=== PATIENT | male | born 1960 | race Caucasian/White ===

== ENCOUNTER 2023-04-04 19:30 | Emergency (ER) | payer OTHER, SELFPAY ==
[2023-04-04 19:38] VITALS: BP 200/98; PULSE 80; RESP 18; TEMP 36.8; O2SAT 97; BMI 31.9
--- NOTE | 2023-04-04 20:54 | ED_ITS ---
HPI - Dizziness General: Chief Complaint: Dizziness Stated Complaint: bp high,dizzy Time Seen by Provider: 04/04/23 20:45 History of Present Illness: HPI Narrative: Patient presents to the ER with dizziness and high blood pressure. Patient is normally on losartan 50 mg that he has been taking blood pressure has been creeping up over the last week. Patient went to his PCP last week and got diagnosed with the flu and was put on antibiotics and his cough and congestion has gotten better but his blood pressure started going up he started get more dizzy. Patient denies ever feeling bad and before he got sick his blood pressure was controlled per the patient Review of Systems General: Reports: 10 or more systems reviewed and unremarkable except in HPI and below Physical Exam Const: COMMON NORMALS: no acute distress, average body habitus, patient oriented x3, no limitations, healthy appearing, alert and well nourished HENMT: COMMON NORMALS: normocephalic, atraumatic, hearing grossly normal bilaterally, external ears normal, EAC's normal, moist oral mucous membranes and oropharynx normal; TM's not normal bilaterally (Bilateral serous otitis) HEAD & SCALP: normocephalic and atraumatic EXTERNAL EAR: Yes external ears normal EXTERNAL AUDITORY CANAL: EAC's normal TYMPANIC MEMBRANE: TM(s) not normal bilaterally (Bilateral serous otitis) Eye: COMMON NORMALS: Equal, round and reactive pupils present, EOMs intact bilaterally, conjunctivae normal and no scleral icterus CONJUNCTIVA: Yes conjunctivae normal PUPIL: Yes Equal, round and reactive pupils present Neck/C-Spine: COMMON NORMALS: full ROM, no lymphadenopathy, supple, no meningeal signs, no JVD and Thyroid normal THYROID: Thyroid normal Chest: COMMONS NORMALS: normal inspection of the chest and normal palpation of entire chest wall Resp: COMMON NORMALS: normal respiratory effort, No retractions, No use of accessory muscles and clear to auscultation bilaterally AUSCULTATION: clear to auscultation bilaterally Cardio: COMMON NORMALS: no JVD, regular rate, regular rhythm, S1 normal heart sound present, S2 normal heart sound present, No gallops present (Cardio), No clicks present (Cardio), No murmurs present (Cardio) and No rub (Cardio) RATE: regular rate RHYTHM: regular rhythm HEART SOUNDS: S1 normal heart sound present and S2 normal heart sound present GI: COMMON NORMALS: Normal to inspection, nondistended, normoactive bowel sounds present, Soft to palpation, non-tender, No hepatosplenomegaly present and no masses PALPATION: Yes Soft to palpation and Yes No hepatosplenomegaly present Neuro: COMMON NORMALS: patient oriented x3 SENSORIUM/ORIENTATION: Yes alert MENINGEAL SIGNS: Yes no meningeal signs Course Vital Signs: Vital signs: Vital Signs Temperature 98.3 F 04/04/23 19:38 Pulse Rate 80 04/04/23 19:38 Respiratory Rate 18 04/04/23 19:38 Blood Pressure 150/75 04/04/23 21:21 Pulse Oximetry 97 04/04/23 19:38 Oxygen Delivery Me thod Room Air 04/04/23 19:38 MDM - Dizziness Medical Decision Making Patient presents to the ER with high blood pressure and dizziness. It was noted that patient just finished a round of antibiotics and has been using [id number] antihistamines. Patient's blood pressure improved while he was in the exam room. Patient had bilateral serous otitis media. Patient was given meclizine, dexamethasone, clonidine. Patient will be discharged home with a prescription for prednisone and clonidine. Patient is to follow-up with his PCP within next 7 days for further evaluation and treatment as needed. Differential Diagnosis Unlikely adverse reaction to drug, benign paroxysmal positional vertigo, orthostatic hypotension, vertebral basilar insufficiency, cerebrovascular accident, acute vestibular neuronitis or transient cerebral ischemia Medical Records I reviewed the patient's medical records. Lab Data I reviewed the patient's lab results. All radiology interpretation(s) finalized by discharge Discharge Plan Discharge Patient Disposition: Home Clinical Impression: Vertigo BSOM (bilateral serous otitis media) Qualifiers: Chronicity: acute Recurrence: non-recurrent Qualified Code(s): H65.03 - Acute serous otitis media, bilateral Hypertension Qualifiers: Hypertension type: unspecified Qualified Code(s): I10 - Essential (primary) hypertension Condition: Stable Prescriptions: New prednisone 50 mg tablet 50 mg PO DAILY Qty: 5 0RF clonidine HCl 0.1 mg tablet See Rx Instructions .ROUTE .COMPLEX Qty: 30 0RF Rx Instructions: 1 tablet p.o. every 6 hours as needed blood pressure greater than 160/100 Discharge Orders: Discharge ED (Routine); Ordered 04/04/23 Ordered By: Marino Siegel Patient Instructions: Vertigo (ED), Hypertension (ED), Fluid In The Ear (Serous Otitis Media) (ED) Activity Restrictions/Additional Instructions: Take all medicine as directed. Take your blood pressure several times throughout the day and keep a log. Please follow-up with your family practice doctor within the next 7 days for further evaluation and treatment. Coding Level of Care Code ED Typesetter Apprentice for Ovidio Connell
[2023-04-04] MEDS: dexamethasone 10 mg/mL INJ IM (21:12)
[2023-04-04] MEDS: meclizine 25 mg tablet PO (21:12)
[2023-04-04 21:21] VITALS: BP 150/75
== END 2023-04-04 21:44 | disposition home or self-care (01) ==
PROVIDERS: Emergency Provider Emergency Medicine
DX: R42 Dizziness and giddiness (principal); H65.03 Acute serous otitis media, bilateral; I10 Essential (primary) hypertension
CPT/HCPCS: 96372; 99284; J1100; J8597